=== PATIENT | female | born 1970 | race Caucasian/White ===

== ENCOUNTER 2018-03-28 09:56 | Inpatient (IN) | payer BC, OTHER, SELFPAY ==
[~2018-03-28] VITALS: Ht 179.1 cm; Wt 96.4 kg
[2018-03-28] MEDS ORDERED: SERT100T PO (10:24)
[2018-03-28] MEDS ORDERED: SODIUM CHLORIDE 0.9% 1,000ML IVBOLUS ONE (10:30)
[2018-03-28] MEDS ORDERED: SODIUM CHLORIDE FLUSH 10ML SYR IVF ONE (10:30)
[2018-03-28] MEDS ORDERED: ONDANSETRON 2MG/ML, 2ML IVPush ONE (10:30)
[2018-03-28] MEDS ORDERED: ONDANSETRON 2MG/ML, 2ML ONE (10:36)
[2018-03-28] MEDS ORDERED: MORPHINE SULFATE 4 MG/ML, 1ML ONE ×2 (10:37→11:52)
[2018-03-28] MEDS: MORPHINE SULFATE 4 MG/ML, 1ML IVPush PRN ×4 (10:45→23:14)
[2018-03-28 10:51] LABS: BASOPHILS # (AUTO) 0.02 x10^3/uL (0-0.1); BASOPHILS % (AUTO) 0 % (0-1); EOSINOPHILS # (AUTO) 0.02 x10^3/uL (0-0.4); EOSINOPHILS % (AUTO) 0 % (1-7); LYMPHOCYTES # (AUTO) 1.22 x10^3/uL (1-3.4); LYMPHOCYTES % (AUTO) 12 % (22-44); MD NO; MEAN CORPUSCULAR HEMOGLOBIN 30.3 pg (27.0-34.8); MEAN CORPUSCULAR HGB CONC 33.1 g/dL (32.4-35.8); MEAN CORPUSCULAR VOLUME 91.7 fL (80-100); MEAN PLATELET VOLUME 8.8 fL (7.4-10.4); MONOCYTES # (AUTO) 1.39 x10^3/uL (0.2-0.8); MONOCYTES % (AUTO) 14 % (2-9); NEUTROPHILS % (AUTO) 73 % (42-75); PLATELET COUNT 350 x10^3/uL (130-400); RED BLOOD COUNT 4.73 x10^6/uL (3.82-5.3); RED CELL DISTRIBUTION WIDTH 13.6 % (9.6-15.2)
[2018-03-28 11:05] LABS: ALANINE AMINOTRANSFERASE 34 U/L (12-78); ALBUMIN 3.8 g/dL (3.4-5.0); ANION GAP 10 mmol/L (5-15); CALCIUM 8.4 mg/dL (8.5-10.1); CHLORIDE 101 mmol/L (98-107); CREATININE 0.87 mg/dL (0.55-1.02)
[2018-03-28 11:09] LABS: ALKALINE PHOSPHATASE 73 U/L (45-117); BILIRUBIN,TOTAL 2.4 mg/dL (0.2-1.0)
[2018-03-28] MEDS ORDERED: SODIUM CHLORIDE 0.9% 1,000 ML IV ONE (11:42)
[2018-03-28 11:51] LABS: MICROSCOPIC INDICATED
[2018-03-28] MEDS ORDERED: SODIUM CHLORIDE FLUSH 10ML SYR IVF PRN (12:00)
[2018-03-28] MEDS ORDERED: CEFTRIAXONE PMX 1GM/50ML 50 ML IV ONE (12:00)
[2018-03-28 12:05] LABS: CULTURE INDICATED? YES
[2018-03-28] MEDS ORDERED: LABETALOL 5MG/ML, 20ML IVPush PRN (13:00)
[2018-03-28 13:25] LABS: FREE T4 (FREE THYROXINE) 0.9 ng/dL (0.76-1.46)
[2018-03-28 13:43] VITALS: BP 117/76
[2018-03-28] MEDS ORDERED: AMPICILLIN/SULBACTAM 3 GM in SODIUM CHLORIDE 0.9% 100 ML IV SCH (14:00)
[2018-03-28] MEDS ORDERED: MORPHINE SULFATE 4 MG/ML, 1ML IVPush PRN (15:00)
[2018-03-28] MEDS ORDERED: HYDROmorphone 2 MG/ML, 1ML ONE (17:22)
[2018-03-28] MEDS ORDERED: HYDROmorphone 1 MG/ML, 1ML IV ONE (17:30)
[2018-03-28] MEDS: CEFTRIAXONE PMX 2GM/50ML 50 ML IV SCH (19:37)
[2018-03-28 19:50] VITALS: BP 112/71
[2018-03-28] MEDS: ONDANSETRON 2MG/ML, 2ML IVPush PRN (19:54)
[2018-03-29 01:35] VITALS: BP 122/78
[2018-03-29] MEDS: ONDANSETRON 2MG/ML, 2ML IVPush PRN ×3 (02:58→20:03)
[2018-03-29] MEDS: MORPHINE SULFATE 4 MG/ML, 1ML IVPush PRN ×7 (02:58→23:36)
[2018-03-29 05:14] LABS: ALBUMIN 3.4 g/dL (3.4-5.0); ANION GAP 9 mmol/L (5-15); CALCIUM 8.4 mg/dL (8.5-10.1); CHLORIDE 100 mmol/L (98-107)
[2018-03-29 05:22] LABS: MEAN CORPUSCULAR HEMOGLOBIN 30.9 pg (27.0-34.8); MEAN CORPUSCULAR HGB CONC 33.4 g/dL (32.4-35.8); MEAN CORPUSCULAR VOLUME 92.6 fL (80-100); MEAN PLATELET VOLUME 8.9 fL (7.4-10.4); PLATELET COUNT 286 x10^3/uL (130-400); RED BLOOD COUNT 4.56 x10^6/uL (3.82-5.3); RED CELL DISTRIBUTION WIDTH 13.8 % (9.6-15.2)
[2018-03-29 05:28] LABS: ALANINE AMINOTRANSFERASE 26 U/L (12-78); ALKALINE PHOSPHATASE 64 U/L (45-117); BILIRUBIN,TOTAL 2.2 mg/dL (0.2-1.0); CREATININE 0.79 mg/dL (0.55-1.02); THYROID STIMULATING HORMONE 0.899 mIU/L (0.358-3.740); TOTAL PROTEIN 7.6 g/dL (6.4-8.2)
[2018-03-29 05:43] LABS: MD YES
[2018-03-29 05:46] LABS: BAND#(MANUAL) 0.92 x10^3/uL; BANDS%(MANUAL) 12 % (0-7); LYMPH#(MANUAL) 0.77 x10^3/uL (1-3.4); LYMPHS% (MANUAL) 10 % (22-44); MONOS#(MANUAL) 1.93 x10^3/uL (0.3-2.7); MONOS% (MANUAL) 25 % (2-9); SEG#(MANUAL) 4.08 x10^3/uL (1.8-6.8); SEGS% (MANUAL) 53 % (42-75)
[2018-03-29 05:47] LABS: <PLATELET ESTIMATE> ADEQUATE; <PLT MORPHOLOGY> NORMAL PLT MORPH; ANISOCYTOSIS 1+
[2018-03-29 07:09] VITALS: BP 114/75
[2018-03-29] MEDS: D5%-0.45NACL+KCL 20MEQ 1,000 ML IV SCH ×2 (11:01→20:03)
[2018-03-29 12:27] VITALS: BP 121/81
[2018-03-29 19:27] VITALS: BP 109/74
[2018-03-29] MEDS: CEFTRIAXONE PMX 2GM/50ML 50 ML IV SCH (20:03)
[2018-03-30 01:18] VITALS: BP 110/71
[2018-03-30] MEDS: MORPHINE SULFATE 4 MG/ML, 1ML IVPush PRN ×3 (05:07→18:01)
[2018-03-30 05:10] LABS: MEAN CORPUSCULAR HEMOGLOBIN 31.4 pg (27.0-34.8); MEAN CORPUSCULAR HGB CONC 34.1 g/dL (32.4-35.8); MEAN CORPUSCULAR VOLUME 91.9 fL (80-100); MEAN PLATELET VOLUME 8.5 fL (7.4-10.4); PLATELET COUNT 196 x10^3/uL (130-400); RED BLOOD COUNT 4.34 x10^6/uL (3.82-5.3); RED CELL DISTRIBUTION WIDTH 13.7 % (9.6-15.2)
[2018-03-30 05:14] LABS: CHLORIDE 100 mmol/L (98-107)
[2018-03-30 05:23] LABS: ALANINE AMINOTRANSFERASE 20 U/L (12-78); ALBUMIN 3.1 g/dL (3.4-5.0); ALKALINE PHOSPHATASE 59 U/L (45-117); ANION GAP 8 mmol/L (5-15); BILIRUBIN,TOTAL 1.6 mg/dL (0.2-1.0); CALCIUM 8.1 mg/dL (8.5-10.1); CREATININE 0.58 mg/dL (0.55-1.02); TOTAL PROTEIN 7.4 g/dL (6.4-8.2)
[2018-03-30 05:43] LABS: MD YES
[2018-03-30 05:45] LABS: BAND#(MANUAL) 0.39 x10^3/uL; BANDS%(MANUAL) 4 % (0-7); LYMPH#(MANUAL) 2.23 x10^3/uL (1-3.4); LYMPHS% (MANUAL) 23 % (22-44); MONOS#(MANUAL) 0.49 x10^3/uL (0.3-2.7); MONOS% (MANUAL) 5 % (2-9); SEGS% (MANUAL) 68 % (42-75)
[2018-03-30 05:47] LABS: <PLT MORPHOLOGY> NORMAL PLT MORPH; POLYCHROMASIA 1+
[2018-03-30 05:48] LABS: <PLATELET ESTIMATE> ADEQUATE
[2018-03-30] MEDS: D5%-0.45NACL+KCL 20MEQ 1,000 ML IV SCH (06:16)
[2018-03-30] MEDS ORDERED: SODIUM PHOSPHATE 4 MEQ/ML IV SCH (08:00)
[2018-03-30] MEDS ORDERED: SODIUM PHOSPHATE 30 MMOL in SODIUM CHLORIDE 0.9% 500 ML IV ONE (08:00)
[2018-03-30 09:29] VITALS: BP 110/73
[2018-03-30 15:23] VITALS: BP 133/83
[2018-03-30] MEDS: ONDANSETRON ODT 4 MG PO PRN (17:44)
[2018-03-30 18:21] VITALS: BP 115/77
[2018-03-30] MEDS: SERTRALINE 100MG TABLET PO SCH (21:00)
[2018-03-30] MEDS: CEFTRIAXONE PMX 2GM/50ML 50 ML IV SCH (21:27)
[2018-03-30] MEDS: ONDANSETRON 2MG/ML, 2ML IVPush PRN (21:27)
[2018-03-31] MEDS: ONDANSETRON ODT 4 MG PO PRN (00:37)
[2018-03-31] MEDS: D5%-0.45NACL+KCL 20MEQ 1,000 ML IV SCH ×4 (01:50→20:07)
[2018-03-31 03:00] VITALS: BP 121/80
[2018-03-31] MEDS: ONDANSETRON 2MG/ML, 2ML IVPush PRN ×3 (04:57→16:59)
[2018-03-31 07:58] VITALS: BP 114/76
[2018-03-31 13:32] VITALS: BP 112/74
[2018-03-31] MEDS: CEFTRIAXONE PMX 2GM/50ML 50 ML IV SCH (19:21)
[2018-03-31] MEDS: MORPHINE SULFATE 4 MG/ML, 1ML IVPush PRN (20:07)
[2018-03-31 20:26] VITALS: BP 138/93
[2018-03-31] MEDS: SERTRALINE 100MG TABLET PO SCH (20:49)
[2018-04-01 03:22] VITALS: BP 124/84
[2018-04-01 05:46] LABS: BASOPHILS # (AUTO) 0.03 x10^3/uL (0-0.1); BASOPHILS % (AUTO) 0 % (0-1); EOSINOPHILS # (AUTO) 0.05 x10^3/uL (0-0.4); EOSINOPHILS % (AUTO) 1 % (1-7); LYMPHOCYTES # (AUTO) 1.23 x10^3/uL (1-3.4); LYMPHOCYTES % (AUTO) 13 % (22-44); MD NO; MEAN CORPUSCULAR HEMOGLOBIN 31.1 pg (27.0-34.8); MEAN CORPUSCULAR HGB CONC 33.9 g/dL (32.4-35.8); MEAN CORPUSCULAR VOLUME 91.8 fL (80-100); MEAN PLATELET VOLUME 8.3 fL (7.4-10.4); MONOCYTES # (AUTO) 1.16 x10^3/uL (0.2-0.8); MONOCYTES % (AUTO) 12 % (2-9); NEUTROPHILS # (AUTO) 6.93 x10^3/uL (1.8-6.8); NEUTROPHILS % (AUTO) 74 % (42-75); PLATELET COUNT 384 x10^3/uL (130-400); RED BLOOD COUNT 4.42 x10^6/uL (3.82-5.3); RED CELL DISTRIBUTION WIDTH 13.6 % (9.6-15.2)
[2018-04-01 05:53] LABS: ALANINE AMINOTRANSFERASE 32 U/L (12-78); ALBUMIN 3.3 g/dL (3.4-5.0); ANION GAP 8 mmol/L (5-15); CALCIUM 9.6 mg/dL (8.5-10.1); CHLORIDE 96 mmol/L (98-107); CREATININE 0.82 mg/dL (0.55-1.02)
[2018-04-01 05:55] LABS: ALKALINE PHOSPHATASE 85 U/L (45-117); BILIRUBIN,TOTAL 0.8 mg/dL (0.2-1.0)
[2018-04-01] MEDS: D5%-0.45NACL+KCL 20MEQ 1,000 ML IV SCH ×2 (06:14→20:45)
[2018-04-01 06:59] VITALS: BP 116/79
[2018-04-01] MEDS: ONDANSETRON 2MG/ML, 2ML IVPush PRN ×2 (13:08→20:37)
[2018-04-01] MEDS: CEFTRIAXONE PMX 2GM/50ML 50 ML IV SCH (19:14)
[2018-04-01] MEDS ORDERED: OMNIPAQUE 350 MG/ML, 150 ML BOTTLE ONE (19:38)
[2018-04-01] MEDS: SERTRALINE 100MG TABLET PO SCH (20:53)
[2018-04-01 21:37] VITALS: BP 124/87
[2018-04-01] MEDS: MORPHINE SULFATE 4 MG/ML, 1ML IVPush PRN (23:48)
[2018-04-02 02:51] VITALS: BP 121/85
[2018-04-02] MEDS: ONDANSETRON 2MG/ML, 2ML IVPush PRN ×2 (02:51→08:42)
[2018-04-02] MEDS: D5%-0.45NACL+KCL 20MEQ 1,000 ML IV SCH ×2 (07:37→16:18)
[2018-04-02 07:47] VITALS: BP 122/77
[2018-04-02] MEDS ORDERED: MIDAZOLAM 1 MG/ML, 2ML ONE (08:31)
[2018-04-02] MEDS ORDERED: FENTANYL PF 250 MCG/5ML ONE (08:31)
[2018-04-02] MEDS ORDERED: BUPIVACAINE/PF 0.25% ONE (08:35)
[2018-04-02] MEDS ORDERED: EPINEPHRINE 1 MG/ML, 1ML ONE (08:35)
[2018-04-02] MEDS ORDERED: CEFAZOLIN 1,000 MG ONE (09:08)
[2018-04-02] MEDS ORDERED: ROCURONIUM 10 MG/ML,10ML ONE (09:08)
[2018-04-02] MEDS ORDERED: DEXAMETHASONE 4 MG/ML, 1ML ONE (09:08)
[2018-04-02] MEDS ORDERED: PROPOFOL 10 MG/ML, 20ML ONE (09:08)
[2018-04-02] MEDS ORDERED: ONDANSETRON 2MG/ML, 2ML ONE (09:08)
[2018-04-02] MEDS ORDERED: KETOROLAC 30 MG/1 ML ONE (09:08)
[2018-04-02] MEDS ORDERED: SUCCINYLCHOLINE 20 MG/ML, 10ML ONE (09:08)
[2018-04-02] MEDS ORDERED: BUPIVACAINE/PF-EPI 0.25% 1:200K IM ONE (09:37)
[2018-04-02] MEDS ORDERED: ALBUTEROL SULFATE 2.5 MG/3 ML NPPB PRN (10:00)
[2018-04-02] MEDS ORDERED: HYDROmorphone 1 MG/ML, 1ML IV PRN (10:00)
[2018-04-02] MEDS ORDERED: hydrALAzine 20 MG/ML, 1ML IV PRN (10:00)
[2018-04-02] MEDS ORDERED: LORazepam 2 MG/ML, 1ML IVPush PRN (10:00)
[2018-04-02] MEDS ORDERED: LABETALOL 5MG/ML, 20ML IV PRN (10:00)
[2018-04-02] MEDS ORDERED: PROMETHAZINE 25 MG/ML, 1ML IV PRN (10:00)
[2018-04-02] MEDS ORDERED: OXYcodone 5 MG/5 ML ORAL.SOL UDC PO PRN ×2 (10:00→11:30)
[2018-04-02] MEDS ORDERED: MEPERIDINE/PF 25MG/0.5ML IVPush PRN (10:00)
[2018-04-02] MEDS: FENTANYL PF 100 MCG/2ML IV PRN ×4 (11:05→11:20)
[2018-04-02] MEDS ORDERED: OXYcodone 5 MG/5 ML ORAL.SOL UDC ONE (11:09)
[2018-04-02] MEDS ORDERED: FENTANYL PF 100 MCG/2ML ONE (11:10)
[2018-04-02] MEDS ORDERED: ACETAMINOPHEN 650 MG/20.3 ML UDC ONE (11:14)
[2018-04-02] MEDS ORDERED: ACETAMINOPHEN 325 MG TABLET PO PRN ×2 (11:30→22:00)
[2018-04-02 13:25] VITALS: BP 126/98
[2018-04-02] MEDS: MORPHINE SULFATE 4 MG/ML, 1ML IVPush PRN ×3 (17:06→23:50)
[2018-04-02] MEDS: SERTRALINE 100MG TABLET PO SCH (19:38)
[2018-04-02 19:55] VITALS: BP 112/73
[2018-04-02] MEDS: HYDROcodone/APAP 5/325 TABLET PO PRN (21:59)
[2018-04-02 23:07] LABS: CLOSTRIDIUM DIFFICILE ANTIGEN NEGATIVE; CLOSTRIDIUM DIFFICILE TOXIN NEGATIVE (Negative)
[2018-04-02] MEDS: ONDANSETRON ODT 4 MG PO PRN (23:50)
[2018-04-03 00:20] VITALS: BP 112/72
[2018-04-03] MEDS: D5%-0.45NACL+KCL 20MEQ 1,000 ML IV SCH ×3 (02:22→22:29)
[2018-04-03] MEDS: MORPHINE SULFATE 4 MG/ML, 1ML IVPush PRN ×5 (04:02→22:10)
[2018-04-03 04:14] VITALS: BP 110/76
[2018-04-03 05:10] LABS: MEAN CORPUSCULAR HGB CONC 33.6 g/dL (32.4-35.8); MEAN CORPUSCULAR VOLUME 92.4 fL (80-100); MEAN PLATELET VOLUME 7.9 fL (7.4-10.4); PLATELET COUNT 369 x10^3/uL (130-400); RED BLOOD COUNT 4.36 x10^6/uL (3.82-5.3); RED CELL DISTRIBUTION WIDTH 13.6 % (9.6-15.2)
[2018-04-03 05:15] LABS: ALBUMIN 3.1 g/dL (3.4-5.0); ANION GAP 6 mmol/L (5-15); CALCIUM 8.5 mg/dL (8.5-10.1); CHLORIDE 96 mmol/L (98-107)
[2018-04-03 06:36] LABS: BASOPHILS # (AUTO) 0.05 x10^3/uL (0-0.1); BASOPHILS % (AUTO) 0 % (0-1); EOSINOPHILS # (AUTO) 0.19 x10^3/uL (0-0.4); EOSINOPHILS % (AUTO) 1 % (1-7); LYMPHOCYTES % (AUTO) 10 % (22-44); MD SCAN; MONOCYTES # (AUTO) 1.78 x10^3/uL (0.2-0.8); MONOCYTES % (AUTO) 12 % (2-9); NEUTROPHILS # (AUTO) 11.18 x10^3/uL (1.8-6.8); NEUTROPHILS % (AUTO) 76 % (42-75)
[2018-04-03] MEDS: HYDROcodone/APAP 5/325 TABLET PO PRN ×3 (06:41→17:37)
[2018-04-03] MEDS: ONDANSETRON ODT 4 MG PO PRN (06:41)
[2018-04-03] MEDS ORDERED: POTASSIUM CHLORIDE 20 MEQ TAB.ER.PRT PO ONE ×2 (08:00→11:30)
[2018-04-03 08:50] VITALS: BP 114/79
[2018-04-03] MEDS: ONDANSETRON 2MG/ML, 2ML IVPush PRN ×2 (09:37→22:10)
[2018-04-03 13:59] VITALS: BP 108/73
[2018-04-03 19:54] VITALS: BP 111/73
[2018-04-03] MEDS: SERTRALINE 100MG TABLET PO SCH (20:01)
[2018-04-04] MEDS: HYDROcodone/APAP 5/325 TABLET PO PRN ×3 (00:14→14:48)
[2018-04-04] MEDS: MORPHINE SULFATE 4 MG/ML, 1ML IVPush PRN ×2 (02:14→12:00)
[2018-04-04 02:23] VITALS: BP 121/84
[2018-04-04 05:53] LABS: ALBUMIN 3.1 g/dL (3.4-5.0); ANION GAP 5 mmol/L (5-15); CALCIUM 8.8 mg/dL (8.5-10.1); CHLORIDE 99 mmol/L (98-107); CREATININE 0.72 mg/dL (0.55-1.02)
[2018-04-04 05:55] LABS: BASOPHILS # (AUTO) 0.01 x10^3/uL (0-0.1); BASOPHILS % (AUTO) 0 % (0-1); EOSINOPHILS # (AUTO) 0.34 x10^3/uL (0-0.4); EOSINOPHILS % (AUTO) 4 % (1-7); LYMPHOCYTES # (AUTO) 1.62 x10^3/uL (1-3.4); LYMPHOCYTES % (AUTO) 17 % (22-44); MD NO; MEAN CORPUSCULAR HEMOGLOBIN 31.1 pg (27.0-34.8); MEAN CORPUSCULAR HGB CONC 33.7 g/dL (32.4-35.8); MEAN CORPUSCULAR VOLUME 92.3 fL (80-100); MEAN PLATELET VOLUME 7.9 fL (7.4-10.4); MONOCYTES # (AUTO) 0.89 x10^3/uL (0.2-0.8); MONOCYTES % (AUTO) 10 % (2-9); NEUTROPHILS # (AUTO) 6.42 x10^3/uL (1.8-6.8); NEUTROPHILS % (AUTO) 69 % (42-75); PLATELET COUNT 375 x10^3/uL (130-400); RED BLOOD COUNT 4.36 x10^6/uL (3.82-5.3); RED CELL DISTRIBUTION WIDTH 13.4 % (9.6-15.2)
[2018-04-04] MEDS: D5%-0.45NACL+KCL 20MEQ 1,000 ML IV SCH ×2 (08:00→18:00)
[2018-04-04 08:29] VITALS: BP 127/80
[2018-04-04 14:04] VITALS: BP 113/74
[2018-04-04] MEDS ORDERED: ONDA4TAB7 PO (16:03)
[2018-04-04] MEDS ORDERED: HYDR-3240 PO (16:18)
[2018-04-04] MEDS ORDERED: HYDROcodone/APAP 5/325 TABLET PO ONE (17:30)
[2018-04-04 17:55] VITALS: BP 132/69
== END 2018-04-04 18:14 | disposition home or self-care (01) | DRG 336 ==
LOC: ED 11:21 → EDIP 11:42 → 3NE 13:30 → 4NOR 04-02 11:47
PROVIDERS: ADMIT Hospitalist; ATTEND Hospitalist
PROC: 0DNU4ZZ Release Omentum, Percutaneous Endoscopic Approach (ICD-10-PCS; 2018-04-02)
PROC: 0DN84ZZ Release Small Intestine, Percutaneous Endoscopic Approach (ICD-10-PCS; principal; 2018-04-02 09:00)
DX: K56.52 Intestinal adhesions [bands] with complete obstruction (principal); E44.1 Mild protein-calorie malnutrition; N39.0 Urinary tract infection, site not specified; R17 Unspecified jaundice; F32.9 Major depressive disorder, single episode, unspecified; K56.7 Ileus, unspecified; Z68.30 Body mass index [BMI] 30.0-30.9, adult; Z79.899 Other long term (current) drug therapy; Z83.3 Family history of diabetes mellitus; Z90.49 Acquired absence of other specified parts of digestive tract; Z97.5 Presence of (intrauterine) contraceptive device; Z88.1 Allergy status to other antibiotic agents
CPT/HCPCS: 36415; 74018; 74022; 74250; 76700; 80048; 80053; 81001; 82040; 83690; 83735; 84100; 84439; 84443; 84703; 85025; 87040; 87086; 87324; 96361; 96374; 96375; 96376; J0171; J0295; J0690; J0696; J1100; J1170; J1885; J2250; J2405; J2704; J3010; J3490; Q0162; Q9967; J0330; J3480; J7030; J7040

== ENCOUNTER 2020-02-25 12:09 | Emergency (ER) | payer OTHER ==
[~2020-02-25] VITALS: Ht 179.1 cm; Wt 90.9 kg
[~2020-02-25 12:09] MED LIST: HYDR-3240 PO; ONDA4TAB7 PO; SERT100T PO
--- NOTE | 2020-02-25 12:50 | NUR ---
Assumed care of patient. C/O ABD pain and worsening diarrhea. 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 Hx of SBO and states this feels similar. Sent here from GI for high blood glucose. NAD. IV started, labs drawn and NS bolus hung. Placed on NIBP and pulse ox. Will continue to monitor.
[2020-02-25] MEDS ORDERED: SODIUM CHLORIDE 0.9% 1,000ML IVBOLUS ONE (13:00)
[2020-02-25] MEDS ORDERED: SODIUM CHLORIDE FLUSH 10ML SYR IVF ONE (13:00)
[2020-02-25 13:05] LABS: BASOPHILS # (AUTO) 0.03 x10^3/uL (0-0.1); BASOPHILS % (AUTO) 1 % (0-1); EOSINOPHILS # (AUTO) 0.11 x10^3/uL (0-0.4); EOSINOPHILS % (AUTO) 2 % (1-7); LYMPHOCYTES # (AUTO) 1.17 x10^3/uL (1-3.4); LYMPHOCYTES % (AUTO) 18 % (22-44); MD NO; MEAN CORPUSCULAR HEMOGLOBIN 30.3 pg (27.0-34.8); MEAN CORPUSCULAR HGB CONC 33.6 g/dL (32.4-35.8); MEAN CORPUSCULAR VOLUME 90.2 fL (80-100); MEAN PLATELET VOLUME 8.9 fL (7.4-10.4); MONOCYTES # (AUTO) 0.77 x10^3/uL (0.2-0.8); MONOCYTES % (AUTO) 12 % (2-9); NEUTROPHILS # (AUTO) 4.28 x10^3/uL (1.8-6.8); NEUTROPHILS % (AUTO) 67 % (42-75); PLATELET COUNT 404 x10^3/uL (130-400); RED BLOOD COUNT 4.74 x10^6/uL (3.82-5.3); RED CELL DISTRIBUTION WIDTH 13.3 % (9.6-15.2)
[2020-02-25 13:17] LABS: ALBUMIN 3.6 g/dL (3.4-5.0); ANION GAP 6 mmol/L (5-15); CALCIUM 8.9 mg/dL (8.5-10.1); CHLORIDE 100 mmol/L (98-107)
[2020-02-25 13:20] LABS: ALANINE AMINOTRANSFERASE 27 U/L (12-78); ALKALINE PHOSPHATASE 129 U/L (45-117); BILIRUBIN,TOTAL 1.2 mg/dL (0.2-1.0); CREATININE 0.83 mg/dL (0.55-1.02); TOTAL PROTEIN 8.3 g/dL (6.4-8.2)
[2020-02-25 13:23] VITALS: BP 127/79
--- NOTE | 2020-02-25 13:23 | NUR ---
NS bolus complete. No other needs.
[2020-02-25 13:26] LABS: CULTURE INDICATED? NO; HCG UR SG > 1.046 (1.003-1.030); MICROSCOPIC NOT IND
--- NOTE | 2020-02-25 14:00 | NUR ---
Patient/Caregiver given discharge instructions and they have confirmed that they understand the instructions. Patient ambulatory with steady gait.
== END 2020-02-25 14:02 | disposition home or self-care (01) ==
LOC: ED 12:28
DX: R73.9 Hyperglycemia, unspecified (principal); R10.9 Unspecified abdominal pain; H53.8 Other visual disturbances
CPT/HCPCS: 36415; 74021; 80053; 81003; 81025; 82962; 85025; 99284; J7030

== ENCOUNTER 2021-07-06 18:56 | Inpatient (IN) | payer OTHER ==
[~2021-07-06] VITALS: Ht 177.8 cm; Wt 87.6 kg
[~2021-07-06 18:56] MED LIST changes: +HYDR-2214 PO; -HYDR-3240 PO
--- NOTE | 2021-07-06 19:04 | NUR ---
BIB EMS PT TESTED +COVID ON TUESDAY. HOME ISOLATING. INCREASING SOB. EMS RPTS PT 74% RA SATS. PRESENTS NOW WITH 15LNRB SP02 OF 96% RR 36. ALL MONITORS PLACED. SBAR RPT TO JYOTI LÓPEZ.
[2021-07-06 19:34] LABS: MEAN CORPUSCULAR HEMOGLOBIN 31.2 pg (27.0-34.8); MEAN CORPUSCULAR HGB CONC 34.5 g/dL (32.4-35.8); MEAN PLATELET VOLUME 7.8 fL (7.4-10.4); PLATELET COUNT 413 x10^3/uL (130-400); RED BLOOD COUNT 4.38 x10^6/uL (3.82-5.3); RED CELL DISTRIBUTION WIDTH 13.4 % (9.6-15.2)
[2021-07-06 19:45] LABS: ALANINE AMINOTRANSFERASE 24 U/L (12-78); ANION GAP 6 mmol/L (5-15); CALCIUM 8.8 mg/dL (8.5-10.1); CHLORIDE 98 mmol/L (98-107); CREATININE 0.69 mg/dL (0.55-1.02)
--- NOTE | 2021-07-06 19:48 | NUR ---
REPORT GIVEN FROM JYOTI RINCON. PT RESTING IN ROOM. VS STABLE. CALL LIGHT IN PLACE. WILL CONTINUE TO MONITOR.
[2021-07-06 19:52] LABS: ALKALINE PHOSPHATASE 70 U/L (45-117); BILIRUBIN,TOTAL 0.6 mg/dL (0.2-1.0); TOTAL PROTEIN 8.9 g/dL (6.4-8.2)
[2021-07-06 20:06] LABS: BAND#(MANUAL) 0.11 x10^3/uL; BANDS%(MANUAL) 1 % (0-7); LYMPH#(MANUAL) 0.74 x10^3/uL (1-3.4); LYMPHS% (MANUAL) 7 % (22-44); MONOS#(MANUAL) 0.85 x10^3/uL (0.3-2.7); MONOS% (MANUAL) 8 % (2-9); SEGS% (MANUAL) 84 % (42-75)
[2021-07-06 20:07] LABS: <WBC MORPHOLOGY> NORMAL
[2021-07-06 20:08] LABS: <PLATELET ESTIMATE> INCREASED; <PLT MORPHOLOGY> NORMAL PLT MORPH
[2021-07-06] MEDS ORDERED: KETOROLAC 30 MG/1 ML ONE (20:10)
[2021-07-06] MEDS ORDERED: SERT50TA PO (20:22)
--- NOTE | 2021-07-06 20:24 | NUR ---
PT ON A OXY MASK ON 15L AT 96%
[2021-07-06] MEDS ORDERED: ONDANSETRON 2MG/ML, 2ML IVPush PRN (20:30)
[2021-07-06] MEDS ORDERED: KETOROLAC 30 MG/1 ML IV PRN (20:30)
[2021-07-06] MEDS ORDERED: KETOROLAC 15 MG/1ML IVPush ONE (20:30)
[2021-07-06] MEDS ORDERED: THIAMINE 100MG TABLET PO ONE (20:30)
[2021-07-06] MEDS ORDERED: GUAIFENESIN/DM 200-20MG, 10ML UDC PO PRN (20:30)
[2021-07-06] MEDS ORDERED: ONDANSETRON ODT 4 MG PO PRN (20:30)
[2021-07-06] MEDS ORDERED: ENALAPRILAT 1.25 MG/ML, 2ML IVPush PRN (20:30)
[2021-07-06] MEDS ORDERED: SODIUM CHLORIDE 0.9% 1,000ML IVBOLUS ONE (20:30)
--- NOTE | 2021-07-06 20:40 | NUR ---
HOSPITALIST IN ROOM
[2021-07-06] MEDS ORDERED: THIAMINE 100MG TABLET ONE (20:50)
[2021-07-06] MEDS ORDERED: FAMOTIDINE 20 MG TABLET ONE (20:50)
[2021-07-06] MEDS ORDERED: ENOXAPARIN 40 MG/0.4 ML ONE (20:50)
[2021-07-06] MEDS: FAMOTIDINE 20 MG TABLET PO SCH (20:55)
[2021-07-06] MEDS: ENOXAPARIN 40 MG/0.4 ML SQ SCH (20:57)
[2021-07-06] MEDS: AZITHROMYCIN 500 MG in SODIUM CHLORIDE 0.9% 250 ML IV SCH (20:58)
[2021-07-06] MEDS ORDERED: REMDESIVIR 200 MG in SODIUM CHLORIDE 0.9% 100 ML IVPB ONE (21:00)
--- NOTE | 2021-07-06 21:00 | NUR ---
BOTH BLOOD CULTURES DRAWN BEFORE ABX GIVEN
[2021-07-06 22:30] VITALS: BP 117/72
[2021-07-06] MEDS: INSULIN LISPRO 100 UNITS/ML, PEN SQ-INSULIN SCH (23:06)
[2021-07-06] MEDS ORDERED: INSU100I18 INJ (23:13)
[2021-07-06] MEDS ORDERED: INSU100I13 INJ (23:13)
[2021-07-07 00:49] VITALS: BP 121/76
[2021-07-07] MEDS: ACETAMINOPHEN 325 MG TABLET PO PRN (03:20)
[2021-07-07 05:48] LABS: BASOPHILS % (AUTO) 0 % (0-1); EOSINOPHILS % (AUTO) 0 % (1-7); LYMPHOCYTES % (AUTO) 10 % (22-44); MEAN CORPUSCULAR HEMOGLOBIN 30.9 pg (27.0-34.8); MEAN CORPUSCULAR HGB CONC 34.3 g/dL (32.4-35.8); MEAN PLATELET VOLUME 8.2 fL (7.4-10.4); MONOCYTES % (AUTO) 8 % (2-9); NEUTROPHILS % (AUTO) 82 % (42-75); PLATELET COUNT 371 x10^3/uL (130-400); RED BLOOD COUNT 3.89 x10^6/uL (3.82-5.3); RED CELL DISTRIBUTION WIDTH 13.5 % (9.6-15.2)
[2021-07-07 05:49] LABS: CHLORIDE 102 mmol/L (98-107)
[2021-07-07 05:56] LABS: ALANINE AMINOTRANSFERASE 17 U/L (12-78); ALBUMIN 2.6 g/dL (3.4-5.0); ALKALINE PHOSPHATASE 56 U/L (45-117); ANION GAP 7 mmol/L (5-15); BILIRUBIN,TOTAL 0.5 mg/dL (0.2-1.0); CALCIUM 8.2 mg/dL (8.5-10.1); CREATININE 0.51 mg/dL (0.55-1.02); TOTAL PROTEIN 7.2 g/dL (6.4-8.2)
[2021-07-07] MEDS: INSULIN LISPRO 100 UNITS/ML, PEN SQ-INSULIN SCH ×4 (07:00→20:12)
[2021-07-07 08:15] VITALS: BP 115/76
[2021-07-07] MEDS: ASCORBIC ACID 500 MG TABLET PO SCH ×2 (08:41→16:39)
[2021-07-07] MEDS: DEXAMETHASONE 4 MG/ML, 1ML IVPush SCH (08:41)
[2021-07-07] MEDS: SERTRALINE 50MG TABLET PO SCH (08:42)
[2021-07-07] MEDS: ZINC SULFATE 220 MG CAPSULE PO SCH (08:42)
[2021-07-07] MEDS: FAMOTIDINE 20 MG TABLET PO SCH ×2 (08:42→20:14)
[2021-07-07] MEDS: CHOLECALCIFEROL 1,000 UNIT TABLET PO SCH (08:42)
[2021-07-07 13:15] VITALS: BP 104/69
[2021-07-07] MEDS ORDERED: OMNIPAQUE 350 MG/ML, 100ML BOTTLE ONE (14:42)
[2021-07-07] MEDS: GUAIFENESIN 200 MG TABLET PO SCH ×2 (16:39→20:14)
[2021-07-07] MEDS: BENZONATATE 100 MG CAPSULE PO SCH ×2 (16:39→20:14)
[2021-07-07 19:23] VITALS: BP 101/65
[2021-07-07] MEDS: ENOXAPARIN 40 MG/0.4 ML SQ SCH (20:14)
[2021-07-07] MEDS: AZITHROMYCIN 500 MG in SODIUM CHLORIDE 0.9% 250 ML IV SCH (20:15)
[2021-07-07] MEDS: REMDESIVIR 100 MG in SODIUM CHLORIDE 0.9% 100 ML IVPB SCH (23:23)
[2021-07-07] MEDS: DIPHENHYDRAMINE 25 MG CAPSULE PO PRN (23:23)
[2021-07-08 00:25] VITALS: BP 105/69
[2021-07-08 05:34] LABS: CHLORIDE 105 mmol/L (98-107)
[2021-07-08 05:47] LABS: ALANINE AMINOTRANSFERASE 18 U/L (12-78); ALBUMIN 2.6 g/dL (3.4-5.0); ALKALINE PHOSPHATASE 54 U/L (45-117); ANION GAP 6 mmol/L (5-15); BILIRUBIN,TOTAL 0.5 mg/dL (0.2-1.0); CALCIUM 8.9 mg/dL (8.5-10.1); TOTAL PROTEIN 7.3 g/dL (6.4-8.2)
[2021-07-08 05:51] LABS: BASOPHILS % (AUTO) 0 % (0-1); EOSINOPHILS % (AUTO) 0 % (1-7); LYMPHOCYTES % (AUTO) 18 % (22-44); MEAN CORPUSCULAR HEMOGLOBIN 31.4 pg (27.0-34.8); MEAN CORPUSCULAR HGB CONC 34.3 g/dL (32.4-35.8); MONOCYTES % (AUTO) 16 % (2-9); NEUTROPHILS % (AUTO) 67 % (42-75); PLATELET COUNT 421 x10^3/uL (130-400); RED BLOOD COUNT 3.83 x10^6/uL (3.82-5.3); RED CELL DISTRIBUTION WIDTH 13.7 % (9.6-15.2)
[2021-07-08] MEDS: GUAIFENESIN 200 MG TABLET PO SCH ×2 (06:10→11:00)
[2021-07-08] MEDS: INSULIN LISPRO 100 UNITS/ML, PEN SQ-INSULIN SCH ×2 (07:00→11:00)
[2021-07-08 08:38] VITALS: BP 104/65
[2021-07-08] MEDS: ASCORBIC ACID 500 MG TABLET PO SCH ×2 (08:44→16:07)
[2021-07-08] MEDS: CHOLECALCIFEROL 1,000 UNIT TABLET PO SCH (09:45)
[2021-07-08] MEDS: FAMOTIDINE 20 MG TABLET PO SCH ×2 (09:45→21:35)
[2021-07-08] MEDS: BENZONATATE 100 MG CAPSULE PO SCH ×3 (09:45→21:35)
[2021-07-08] MEDS: SERTRALINE 50MG TABLET PO SCH (09:45)
[2021-07-08] MEDS: DEXAMETHASONE 4 MG/ML, 1ML IVPush SCH (09:45)
[2021-07-08] MEDS: ZINC SULFATE 220 MG CAPSULE PO SCH (09:46)
[2021-07-08] MEDS: GUAIFENESIN 100 MG/5 ML, 10ML UDC PO SCH ×3 (11:47→21:34)
[2021-07-08 14:11] VITALS: BP 130/87
[2021-07-08 19:13] VITALS: BP 122/81
[2021-07-08] MEDS: ENOXAPARIN 40 MG/0.4 ML SQ SCH (21:34)
[2021-07-08] MEDS: AZITHROMYCIN 500 MG in SODIUM CHLORIDE 0.9% 250 ML IV SCH (21:35)
[2021-07-08] MEDS: DIPHENHYDRAMINE 25 MG CAPSULE PO PRN (22:28)
[2021-07-08] MEDS: ACETAMINOPHEN 325 MG TABLET PO PRN (22:28)
[2021-07-08] MEDS: REMDESIVIR 100 MG in SODIUM CHLORIDE 0.9% 100 ML IVPB SCH (23:09)
[2021-07-09 01:03] VITALS: BP 147/82
[2021-07-09] MEDS: GUAIFENESIN 100 MG/5 ML, 10ML UDC PO SCH ×2 (05:24→11:17)
[2021-07-09 08:02] VITALS: BP 125/82
[2021-07-09] MEDS: BENZONATATE 100 MG CAPSULE PO SCH ×3 (11:16→20:58)
[2021-07-09] MEDS: DEXAMETHASONE 4 MG/ML, 1ML IVPush SCH (11:17)
[2021-07-09] MEDS: CHOLECALCIFEROL 1,000 UNIT TABLET PO SCH (11:18)
[2021-07-09] MEDS: FAMOTIDINE 20 MG TABLET PO SCH ×2 (11:19→20:58)
[2021-07-09] MEDS: ZINC SULFATE 220 MG CAPSULE PO SCH (11:19)
[2021-07-09] MEDS: ASCORBIC ACID 500 MG TABLET PO SCH ×2 (11:19→16:00)
[2021-07-09] MEDS ORDERED: GUAIFENESIN 200 MG TABLET PO SCH (12:00)
[2021-07-09] MEDS ORDERED: GUAIFENESIN 100 MG/5 ML, 10ML UDC PO SCH (12:10)
[2021-07-09 12:31] LABS: ALBUMIN 2.6 g/dL (3.4-5.0); ANION GAP 5 mmol/L (5-15); CALCIUM 8.9 mg/dL (8.5-10.1); CHLORIDE 105 mmol/L (98-107)
[2021-07-09 12:34] LABS: ALANINE AMINOTRANSFERASE 28 U/L (12-78); ALKALINE PHOSPHATASE 58 U/L (45-117); BILIRUBIN,TOTAL 0.8 mg/dL (0.2-1.0); CREATININE 0.59 mg/dL (0.55-1.02); TOTAL PROTEIN 7.4 g/dL (6.4-8.2)
[2021-07-09 13:13] VITALS: BP 126/80
[2021-07-09] MEDS: GUAIFENESIN ER 600 MG TABLET PO SCH ×2 (15:59→20:58)
[2021-07-09] MEDS: SERTRALINE 50MG TABLET PO SCH (15:59)
[2021-07-09 19:51] VITALS: BP 129/82
[2021-07-09] MEDS: AZITHROMYCIN 500 MG in SODIUM CHLORIDE 0.9% 250 ML IV SCH (20:57)
[2021-07-09] MEDS: ENOXAPARIN 40 MG/0.4 ML SQ SCH (20:58)
[2021-07-09] MEDS: ACETAMINOPHEN 325 MG TABLET PO PRN (23:46)
[2021-07-09] MEDS: DIPHENHYDRAMINE 25 MG CAPSULE PO PRN (23:46)
[2021-07-09] MEDS: REMDESIVIR 100 MG in SODIUM CHLORIDE 0.9% 100 ML IVPB SCH (23:46)
[2021-07-10 01:28] VITALS: BP 118/66
[2021-07-10 05:35] LABS: ALANINE AMINOTRANSFERASE 32 U/L (12-78); ALBUMIN 2.4 g/dL (3.4-5.0); ANION GAP 6 mmol/L (5-15); CALCIUM 7.9 mg/dL (8.5-10.1); CHLORIDE 106 mmol/L (98-107); CREATININE 0.44 mg/dL (0.55-1.02)
[2021-07-10 05:37] LABS: ALKALINE PHOSPHATASE 59 U/L (45-117); BILIRUBIN,TOTAL 0.7 mg/dL (0.2-1.0); TOTAL PROTEIN 7.1 g/dL (6.4-8.2)
[2021-07-10 08:05] VITALS: BP 126/82
[2021-07-10] MEDS ORDERED: SERTRALINE 50MG TABLET PO SCH (09:00)
[2021-07-10] MEDS: GUAIFENESIN ER 600 MG TABLET PO SCH ×2 (10:46→20:31)
[2021-07-10] MEDS: BENZONATATE 100 MG CAPSULE PO SCH ×3 (10:46→20:31)
[2021-07-10] MEDS: FAMOTIDINE 20 MG TABLET PO SCH ×2 (10:46→20:31)
[2021-07-10] MEDS: DEXAMETHASONE 4 MG/ML, 1ML IVPush SCH (10:46)
[2021-07-10] MEDS: CHOLECALCIFEROL 1,000 UNIT TABLET PO SCH (10:46)
[2021-07-10] MEDS: ASCORBIC ACID 500 MG TABLET PO SCH ×2 (10:46→17:35)
[2021-07-10] MEDS: ZINC SULFATE 220 MG CAPSULE PO SCH (10:46)
[2021-07-10] MEDS: SERTRALINE 50MG TABLET PO SCH (10:47)
[2021-07-10 14:00] VITALS: BP 102/68
[2021-07-10] MEDS: FUROSEMIDE 20 MG/2 ML IV SCH (17:35)
[2021-07-10 20:08] VITALS: BP 113/72
[2021-07-10] MEDS: AZITHROMYCIN 500 MG in SODIUM CHLORIDE 0.9% 250 ML IV SCH (20:30)
[2021-07-10] MEDS: ENOXAPARIN 40 MG/0.4 ML SQ SCH (20:30)
[2021-07-11] MEDS: REMDESIVIR 100 MG in SODIUM CHLORIDE 0.9% 100 ML IVPB SCH (00:20)
[2021-07-11 03:13] VITALS: BP 114/72
[2021-07-11 06:00] LABS: ANION GAP 7 mmol/L (5-15); CALCIUM 8.2 mg/dL (8.5-10.1); CHLORIDE 104 mmol/L (98-107)
[2021-07-11 06:01] LABS: CREATININE 0.46 mg/dL (0.55-1.02)
[2021-07-11 07:25] VITALS: BP 108/72
[2021-07-11] MEDS: ASCORBIC ACID 500 MG TABLET PO SCH ×2 (08:03→17:27)
[2021-07-11] MEDS: GUAIFENESIN ER 600 MG TABLET PO SCH ×2 (08:03→21:05)
[2021-07-11] MEDS: FAMOTIDINE 20 MG TABLET PO SCH ×2 (08:03→21:05)
[2021-07-11] MEDS: CHOLECALCIFEROL 1,000 UNIT TABLET PO SCH (08:03)
[2021-07-11] MEDS: BENZONATATE 100 MG CAPSULE PO SCH ×3 (08:03→21:06)
[2021-07-11] MEDS: ZINC SULFATE 220 MG CAPSULE PO SCH (08:03)
[2021-07-11] MEDS: DEXAMETHASONE 4 MG/ML, 1ML IVPush SCH (08:04)
[2021-07-11] MEDS: FUROSEMIDE 20 MG/2 ML IV SCH (08:04)
[2021-07-11] MEDS: SERTRALINE 50MG TABLET PO SCH (08:04)
[2021-07-11] MEDS ORDERED: FAMO20TA7 PO ×2 (08:18)
[2021-07-11] MEDS ORDERED: CHOL10003 PO ×2 (08:18)
[2021-07-11] MEDS ORDERED: DEXA4TAB66 PO ×2 (08:18)
[2021-07-11] MEDS ORDERED: BENZ-17 PO ×2 (08:18)
[2021-07-11 13:57] VITALS: BP 127/64
[2021-07-11 20:45] VITALS: BP 122/81
[2021-07-11] MEDS: ENOXAPARIN 40 MG/0.4 ML SQ SCH (21:05)
[2021-07-12 01:34] VITALS: BP 108/70
[2021-07-12] MEDS: ASCORBIC ACID 500 MG TABLET PO SCH ×2 (08:52→16:41)
[2021-07-12] MEDS: BENZONATATE 100 MG CAPSULE PO SCH ×3 (08:52→21:08)
[2021-07-12] MEDS: FAMOTIDINE 20 MG TABLET PO SCH ×2 (08:53→21:08)
[2021-07-12] MEDS: FUROSEMIDE 20 MG/2 ML IV SCH (08:53)
[2021-07-12] MEDS: CHOLECALCIFEROL 1,000 UNIT TABLET PO SCH (08:53)
[2021-07-12] MEDS: ZINC SULFATE 220 MG CAPSULE PO SCH (08:53)
[2021-07-12] MEDS: DEXAMETHASONE 4 MG/ML, 1ML IVPush SCH (08:54)
[2021-07-12] MEDS: SERTRALINE 50MG TABLET PO SCH (09:00)
[2021-07-12] MEDS: GUAIFENESIN ER 600 MG TABLET PO SCH ×2 (09:00→21:08)
[2021-07-12 09:03] VITALS: BP 92/65
[2021-07-12] MEDS ORDERED: DEXA4TAB66 PO (09:11)
[2021-07-12] MEDS ORDERED: CHOL10003 PO (09:11)
[2021-07-12] MEDS ORDERED: BENZ-17 PO (09:11)
[2021-07-12] MEDS ORDERED: FAMO20TA7 PO (09:11)
[2021-07-12 14:01] VITALS: BP 100/64
[2021-07-12 20:15] VITALS: BP 101/67
[2021-07-12] MEDS: ENOXAPARIN 40 MG/0.4 ML SQ SCH (21:09)
[2021-07-13 01:05] VITALS: BP 104/70
[2021-07-13 08:41] VITALS: BP 106/71
[2021-07-13] MEDS: BENZONATATE 100 MG CAPSULE PO SCH (08:46)
[2021-07-13] MEDS: FUROSEMIDE 20 MG/2 ML IV SCH (08:46)
[2021-07-13] MEDS: CHOLECALCIFEROL 1,000 UNIT TABLET PO SCH (08:46)
[2021-07-13] MEDS: ASCORBIC ACID 500 MG TABLET PO SCH (08:46)
[2021-07-13] MEDS: DEXAMETHASONE 4 MG/ML, 1ML IVPush SCH (08:47)
[2021-07-13] MEDS: ZINC SULFATE 220 MG CAPSULE PO SCH (08:47)
[2021-07-13] MEDS: GUAIFENESIN ER 600 MG TABLET PO SCH (08:47)
[2021-07-13] MEDS: SERTRALINE 50MG TABLET PO SCH (08:47)
[2021-07-13] MEDS: FAMOTIDINE 20 MG TABLET PO SCH (08:47)
[2021-07-13 14:53] VITALS: BP 109/74
== END 2021-07-13 17:43 | disposition home or self-care (01) | DRG 177 ==
LOC: SUATTDRO 20:21 → ED 20:36 → EDIP 20:37 → 3N 22:02
PROVIDERS: ADMIT Internal Medicine; ATTEND Hospitalist
PROC: XW033E5 Introduction of Remdesivir Anti-infective into Peripheral Vein, Percutaneous Approach, New Technology Group 5 (ICD-10-PCS; principal; 2021-07-06)
DX: U07.1 COVID-19 (principal); J12.82 Pneumonia due to coronavirus disease 2019; J96.01 Acute respiratory failure with hypoxia; K51.90 Ulcerative colitis, unspecified, without complications; E11.65 Type 2 diabetes mellitus with hyperglycemia; F32.9 Major depressive disorder, single episode, unspecified; Z88.8 Allergy status to other drugs, medicaments and biological substances; Z79.899 Other long term (current) drug therapy
CPT/HCPCS: 36415; 71045; 71275; 80048; 80053; 82728; 82962; 83605; 83615; 84145; 85025; 85379; 86140; 87040; 96361; 96374; 96375; 99291; G0378; J0456; J1100; J1650; J1885; Q9967; J1815; J1940; J7030; J7050; Q0163